=== PATIENT | female | born 1955 | race Caucasian/White ===

== ENCOUNTER 2020-07-14 12:53 | Emergency (ER) | payer MEDICARE, BC ==
[~2020-07-14] VITALS: Ht 165.1 cm; Wt 59.1 kg
--- NOTE | 2020-07-14 13:25 | NUR ---
Pt provided a sandwich, yogart, applesauce, string cheese and juice. Pt ate sandwich @ 100% with no issues.
[2020-07-14 13:29] LABS: CLARITY,URINE CLEAR (Clear); COLOR,URINE STRAW (Yellow); GLUCOSE, URINE NEGATIVE (Neg); KETONES,URINE NEGATIVE (Neg); LEUKOCYTE ESTERASE ,URINE SMALL (Neg); NITRITES, URINE NEGATIVE (Neg); OCCULT BLOOD,URINE NEGATIVE (Neg); PH,URINE 6.5 (4.8-8.0); PROTEIN,URINE NEGATIVE (Neg); UROBILINOGEN,URINE 0.2 E.U/dL (0.2-1.0)
[2020-07-14 13:33] LABS: URINE AMPHETAMINE SCREEN NEGATIVE (Neg); URINE BARBITUATE SCREEN NEGATIVE (Neg); URINE BENZODIAZEPINES SCREEN NEGATIVE (Neg); URINE CANNABINOID SCREEN NEGATIVE (Neg); URINE COCAINE SCREEN NEGATIVE (Neg); URINE METHADONE SCREEN NEGATIVE (Neg); URINE OPIATE SCREEN NEGATIVE (Neg); URINE PHENCYCLIDINE SCREEN NEGATIVE (Neg)
[2020-07-14 13:36] LABS: UA COLLECTION TYPE VOIDED
[2020-07-14 13:37] LABS: MUCUS STRANDS FEW /LPF (Neg); SQUAMOUS EPITHELIAL CELL,UR FEW /LPF (FEW)
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
[2020-07-14 13:38] LABS: BACTERIA,URINE NONE SEEN /HPF (Neg); RBC,URINE 0-2 /HPF (0-2); WBC,URINE 0-4 /HPF (0-4)
[2020-07-14 13:48] LABS: BASOPHILS # (AUTO) 0.1 X10'3 (0-0.2); EOSINOPHILS % (AUTO) 0.6 % (0-6); HEMATOCRIT 44.2 % (35.0-45.0); HEMOGLOBIN 14.6 g/dl (12.0-16.0); LYMPHOCYTES # (AUTO) 1.1 X10'3 (1.1-4.8); LYMPHOCYTES % (AUTO) 15.5 % (21-51); MEAN CORPUSCULAR HEMOGLOBIN 31.7 PG (27.0-31.0); MEAN CORPUSCULAR VOLUME 95.8 FL (78-98); MONOCYTES # (AUTO) 0.9 X10'3 (0-0.9); MONOCYTES % (AUTO) 12.4 % (2-12); NEUTROPHILS % (AUTO) 70.5 % (42-75); PLATELET COUNT 378 X10'3 (140-440); RED BLOOD COUNT 4.62 X10'6 (4.20-5.60); RED CELL DISTRIBUTION WIDTH 13.9 % (11.5-14.5); WHITE BLOOD COUNT 7.1 X10'3 (4.5-11.0)
[2020-07-14 14:00] LABS: ALANINE AMINOTRANSFERASE 39 U/L (12-78); ALBUMIN 3.8 G/DL (3.4-5.0); ALBUMIN/GLOBULIN RATIO 1.1 (1.1-1.5); ALKALINE PHOSPHATASE 56 IU/L (46-116); ANION GAP 6 (8-16); ASPARTATE AMINO TRANSFERASE 30 U/L (10-37); BILIRUBIN,TOTAL 0.4 MG/DL (0.1-1.0); BLOOD UREA NITROGEN 20 MG/DL (7-18); CALCIUM 9.3 MG/DL (8.5-10.1); CHLORIDE 103 MMOL/L (99-107); CREATININE 0.87 MG/DL (0.40-0.90); GLUCOSE 91 MG/DL (70-104); POTASSIUM 3.9 MMOL/L (3.5-5.1); SODIUM 140 MMOL/L (135-145); TOTAL CARBON DIOXIDE 30.8 MMOL/L (24-32); TOTAL PROTEIN 7.2 G/DL (6.4-8.2); eGFR 65 ML/MIN
[2020-07-14 14:10] LABS: ETHANOL < 0.010 GM/DL (0.0-0.010)
[2020-07-14] MEDS ORDERED: DESV50TA PO (14:23)
[2020-07-14] MEDS ORDERED: HYDR-3686 PO (14:23)
[2020-07-14] MEDS ORDERED: CLON-529 PO (14:23)
[2020-07-14] MEDS ORDERED: ALPR-624 PO (14:23)
[2020-07-14] MEDS ORDERED: PROP10TA10 PO (14:23)
[2020-07-14] MEDS ORDERED: TRAZ-251 PO (14:23)
[2020-07-14] MEDS ORDERED: ASEN5TAB SL (14:23)
--- NOTE | 2020-07-14 15:19 | NUR ---
called. Asked pt if she was comfortable with us speaking to him about her status. Pt stated that this was fine, and also asked to talk to him. Pt having what appears to be pleasant conversation with .
[2020-07-14] MEDS ORDERED: propranolol 10mg tablet PO PRN (15:50)
[2020-07-14] MEDS: ALPRAZolam 0.5mg tablet PO PRN (16:07)
--- NOTE | 2020-07-14 17:30 | NUR ---
Pt shared she has paranoid thoughts that recently have been worse with her unable to change her perspective. Educated pt about the mechanism of action and need to give psychotropics time to work. Pt verbalized understanding.
--- NOTE | 2020-07-14 18:12 | NUR ---
Discussed lack of Saphris availability w/ PA Ced. New order received for Seroquel 50mg @ 1999 sigh repeat in 1 hr of an additional 50mg if ineffective.
--- NOTE | 2020-07-14 19:00 | NUR ---
Patient is sitting quietly at bedside, she is cooperative with this web content writer. Patient is soft spoken, regular rate and rhythm. Patient presents as linear. Some anxiety present. In view from nursing station.
[2020-07-14] MEDS: ASENAPINE MALEATE SL SCH (20:00)
--- NOTE | 2020-07-14 20:13 | NUR ---
Patient is moved to bed 23. Patient socializes with tech at bedside. Minor anxiety present.
[2020-07-14] MEDS: QUEtiapine 25mg tablet PO SCH (20:37)
[2020-07-14] MEDS: traZODone 50mg tablet PO SCH (20:37)
[2020-07-14] MEDS: cloNIDine 0.1 mg tablet PO SCH (20:37)
[2020-07-14] MEDS: venlafaxine 25mg tablet PO SCH (20:38)
[2020-07-14] MEDS: hydrOXYzine 25 MG tablet PO PRN (20:39)
--- NOTE | 2020-07-14 21:19 | NUR ---
Patient is well oriented, she is medication compliant. No psychosis observed at this time. Atarax given for anxiety. Patient is cooperative with this adjusto writer operator. She denies S/I or H/I, she denies hallulcinations at this time. No signs of internal stimuli.
--- NOTE | 2020-07-14 22:00 | NUR ---
Patient is sleeping quietly. Supine in bed, low fowlers position.
--- NOTE | 2020-07-14 23:53 | NUR ---
Patient is sleeping quietly in a supine position. In direct view from nursing station.
--- NOTE | 2020-07-15 01:15 | NUR ---
Patient is sleeping quietly in a low fowlers position.
--- NOTE | 2020-07-15 03:55 | NUR ---
Patient sleeping quietly in bed. No distress noted. Patient has self repositioned.
--- NOTE | 2020-07-15 04:15 | NUR ---
Patient is sleeping quietly, no distress.
--- NOTE | 2020-07-15 06:16 | NUR ---
Patient sleeping in supine position. In view from nursing station.
[2020-07-15] MEDS: ASENAPINE MALEATE SL SCH (08:00)
[2020-07-15] MEDS: venlafaxine 25mg tablet PO SCH ×3 (08:19→20:54)
[2020-07-15] MEDS: cloNIDine 0.1 mg tablet PO SCH ×2 (08:19→20:00)
--- NOTE | 2020-07-15 10:07 | NUR ---
[facility] WORKER IN TO SEE PT. SPOKE WITH PT EARLIER WHO WOULD LIKE PT TO GO UP TO [facility].
[2020-07-15] MEDS: ALPRAZolam 0.5mg tablet PO PRN (10:55)
--- NOTE | 2020-07-15 10:56 | NUR ---
PT C/O INCREASED ANXIETY, V.O. FROM DR BROWN TO GIVE XANAX EARLY.
--- NOTE | 2020-07-15 11:25 | NUR ---
[facility] KEEPING PT ON 5150. PT SLEEPING IN POC NOW AND CALM AFTER MEDICATION.
--- NOTE | 2020-07-15 11:48 | NUR ---
SPOKE WITH WHO WILL BRING IN HER SAPHRIS RX LATER TODAY OUR PHARMACY DOES NOT HAVE IT.
--- NOTE | 2020-07-15 13:07 | NUR ---
Breaking primary RN. Pt sitting up in bed, talking on the telephone with her .
[2020-07-15] MEDS: hydrOXYzine 25 MG tablet PO PRN (13:50)
--- NOTE | 2020-07-15 15:09 | NUR ---
PT VERBALIZING PARANOID THOUGHTS OF FEELING LIKE SHE WONT BE TAKEN CARE OF. STATEMENTS OF, " WILL THEY HAVE WATER WHERE IM GOING? WILL THEY GIVE ME WARM BLANKETS OR ARE THEY WORRIED I WILL TRY TO HANG MYSELF? IS THERE A BED OR DO I SLEEP ON THE FLOOR? IS IT LIKE A CELL? WILL SOMEONE BE IN MY ROOM WATCHING ME?" PT RE-ASSURED. PTS BROUGHT IN HER HOME MED SAPHRIS 5MG SL TABS #19COUNT AND TAKEN TO PHARMACY TO START TONIGHT 1999.
--- NOTE | 2020-07-15 16:49 | NUR ---
PT NEEDING CONSTANT RE-ASSURANCE ABOUT POC WITH HIGH TEARFUL ANXIETY REPEATING "IM NOT GONNA DO WELL ON THE STREET. PLEASE DONT DISCHARGE ME TO THE STREET AND DONT LET THE OTHER PEOPLE EITHER". PT SPOKE WITH HER ON THE PHONE WHICH MADE HER ANXIETY WORSE BECAUSE SHE WANTS HIM TO COME AND GET HER TO GO HOME.
--- NOTE | 2020-07-15 17:53 | NUR ---
NURSE TO NURSE REPORT TO [facility] IN [place]. THEY WILL CALL BACK IF ACCEPTED.
[2020-07-15] MEDS: ALPRAZolam 0.25mg tablet PO PRN (19:34)
--- NOTE | 2020-07-15 19:59 | NUR ---
Patient had requested Xanax for anxiety. After scanning medication the patient tells this jingle writer that she doesn't believe the medication is Xanax. This jingle writer showed patient the identifing markers on the pills for Xanax. This jingle writer solicited WILLIAM Hopkins to attempt to administer medication to this patient. Patient still refuses.
[2020-07-15] MEDS: traZODone 50mg tablet PO SCH (21:00)
[2020-07-15] MEDS: QUEtiapine 25mg tablet PO SCH (21:00)
--- NOTE | 2020-07-15 21:17 | NUR ---
Patient agreed to take nighttime medications. When medications were brought to bedside each medication was reviewed prior to opening. Patient took one medication, became suspecious and paranoid, refusid all other medications. Patient tells this check writer salesperson "I've been bad all my life, I'm a bad person." The patient was advised that if she decided to take her medications the would still be available. Patient stares at this check writer salesperson with an intense gaze. She does exhibit some understanding, she remains paranoid however. Patient denies any halllucinations.
--- NOTE | 2020-07-15 23:18 | NUR ---
Patient sleeping low fowlers position in bed. Patient self repositions in bed.
[2020-07-16] MEDS: venlafaxine 25mg tablet PO SCH (00:07)
--- NOTE | 2020-07-16 01:11 | NUR ---
Patient sleeping quietly, low fowlers postion in bed.
--- NOTE | 2020-07-16 03:13 | NUR ---
Patient sleeping on her right side, low fowlers position.
--- NOTE | 2020-07-16 05:09 | NUR ---
Nevin, a nurse from [facility] in [place] called to double check on patients departure time from [place]. The recieving MD is going to be Doctor Martinez. Nevin was updated on this patients condition and probable departure time of 0715 hours.
[2020-07-16 05:17] VITALS: BP 114/59
--- NOTE | 2020-07-16 05:29 | NUR ---
Paranoia continues. No headache, speech is quiet, regular rhythm and tone. Patient asks this travel writer "how much did my pay you to send me to [place]?" Patient is reassured that she is in a safe place.
[2020-07-16] MEDS: ALPRAZolam 0.25mg tablet PO PRN (07:05)
--- NOTE | 2020-07-16 07:15 | NUR ---
SURFBOARD MAKER ARRIVES TO TAKE PT TO [place].
--- NOTE | 2020-07-16 07:28 | NUR ---
ADMIN MARIBETH PT'S OWN HOME MEDICATION THAT WAS BROUGHT BACK FROM PHARMACY. PT GIVEN A BLANKET FOR THE TRIP AND ALSO A SANDWICH. PT HAS CHANGED INTO HER OWN CLOTHES AND HER BELONGINGS PLACED IN A BAG FOR THE TRIP TO [place]EC[place]. SECURITY IS CALLED TO ESCORT PT OUT TO CAR WITH TYPE DISK QUALITY CONTROL SUPERVISOR.
== END 2020-07-16 08:09 ==
LOC: ER 12:54
DX: F29 Unspecified psychosis not due to a substance or known physiological condition (principal); F41.9 Anxiety disorder, unspecified; F32.9 Major depressive disorder, single episode, unspecified; Z79.899 Other long term (current) drug therapy
CPT/HCPCS: 36415; 70360; 80053; 80305; 80320; 81001; 84443; 85025; 99285; Q0177